=== PATIENT | male | born 1940 | race Caucasian/White ===

== ENCOUNTER 2016-07-04 14:17 | Emergency (ER) | payer MEDICARE, BC ==
[~2016-07-04 14:17] MED LIST: ALEVE220 M1 PO; CIPRO250 M1 PO; COLACE100 MG PO; DILTIAZEM HCL240 PO; DOXAZOSIN MESYLA2 MG; FLOMAX0.4 MG PO; FLUOXETINE HCL20 MG PO; GLUCOPHAGE500 MG PO; IBUPROFEN200 MG; PROSCAR5 MG; ZOCOR20 MG PO
[2016-07-04] MEDS ORDERED: GLUCOPHAGE500 M3 PO (14:32)
[2016-07-04] MEDS ORDERED: PRINIVIL10 M1 PO (14:32)
[2016-07-04] MEDS ORDERED: TOPAMAX50 M3 PO (14:33)
[2016-07-04] MEDS ORDERED: PROZAC20 M3 PO (14:33)
[2016-07-04] MEDS ORDERED: ZOCOR20 M1 PO (14:33)
[2016-07-04] MEDS ORDERED: DILTIAZEM 24HR240 M2 PO (14:34)
== END 2016-07-04 16:03 ==
LOC: EDMED 14:17
DX: S51.812A Laceration without foreign body of left forearm, initial encounter (principal); Z23 Encounter for immunization; W19.XXXA Unspecified fall, initial encounter; Y92.009 Unspecified place in unspecified non-institutional (private) residence as the place of occurrence of the external cause